=== PATIENT | female | born 1930 | race Caucasian/White ===

== ENCOUNTER 2019-07-14 13:00 | Emergency (ER) | payer MEDICARE, OTHER ==
[2019-07-14] MEDS ORDERED: Acetaminophen 500 MG TAB ONE (13:40)
--- NOTE | 2019-07-14 14:05 | CT ---
EXAM: Brain CT scan Without contrast: HISTORY: Injury from a fall from standing COMPARISON: None FINDINGS: Atrophy and chronic white matter ischemic change. No focal mass or midline shift. No intra or extra-axial hemorrhage. The visualized sinuses and mastoids are clear of acute process. IMPRESSION: No mass or bleed or other significant acute intracranial process.
--- NOTE | 2019-07-14 14:10 | CT ---
Exam: Thoracic spine CT without contrast HISTORY: Fall. Pain. Injury. Comparison: None FINDINGS: Limited evaluation of the mediastinum due to lack of IV contrast. No mediastinal mass, lymp hadenopathy or hematoma. Heart size is within normal limits. No significant pericardial fluid. Extensive coronary calcifications. Atherosclerosis of a nonaneurysmal aorta Visualized upper solid abdominal viscera is grossly unremarkable. Two incompletely evaluated cysts em anating from the left kidney No paraspinal mass, lymphadenopathy or hematoma. Throughout the thoracic spine, the central spinal canal appears patent. No significant stenosis. Neur al foramina are patent There appears be mild loss of vertebral body height at T3, T4, T7 which are likely due to chronic pro cess. No evidence of an acute fracture. No significant paraspinal changes at these levels. Nevertheless, if there is pain or point tenderness in this region, MRI can be performed to assess for possible edema which could be a secondary sign of fracture. There is no significant retropulsion. There is grade 1 anterolisthesis of T3 upon T4, likely on the basis of degenerative change. IMPRESSION: 1. Presumed remote mild compression deformities involving the thoracic spine as described above. If t here is pain or point tenderness, thoracic spine MRI can be performed. 2. Incompletely evaluated left renal cysts. Transcribed Date/Time: 07/14/2019 2:25 PM
--- NOTE | 2019-07-14 14:19 | CT ---
Exam: CT cervical spine without contrast HISTORY: Trauma. Pain. COMPARISON: None FINDINGS: No craniocervical dissociation. Appropriate alignment of the lateral masses of C1 and C2. Intact odon toid process Appropriate alignment of the facets. Straightening of normal cervical lordosis may be due to patient position, muscle spasm or cervical collar. Current study is not tailored to assess for ligamentous injury Spondylolisthesis: 1.9 mm of anterolisthesis of C3 upon C4, 1.9 mm anterolisthesis of C4 upon C5, 1.8 mm anterolisthesis of C7 upon T1. Soft tissue neck structures: No mass, lymphadenopathy or hematoma. No prevertebral soft tissue swelli ng. Mass effect upon the posterior aspect of the supraglottic larynx secondary to medial deviation of bilateral carotid arteries. Upper mediastinum and lung apices: Unremarkable Central spinal canal: Neural foramina and central spinal canal are patent. Evaluation is limited by t echnique Vertebral bodies: Cervical spine vertebral body height is maintained. No fracture. IMPRESSION: 1. No fracture 2. Mass effect upon the posterior supraglottic larynx due to medial deviation of bilateral carotid a rteries. 3. Spondylolisthesis as above. 4. Straightening of normal cervical lordosis. MRI if clinically.
--- NOTE | 2019-07-14 14:20 | CT ---
CT lumbar spine without contrast: HISTORY: Injury to back. Pain in middle of back. COMPARISON: No prior CT exams of the lumbar spine available FINDINGS: Dense vascular calcifications are seen in the abdominal aorta and involving the iliac arteries. There is colonic diverticulosis partially imaged. There is a larger incompletely imaged hypodense lesion involving the superior pole left kidney with a smaller 2.2 cm hypodense lesion also seen in left kidney. These lesions are likely related to cysts, but ultrasound examination is recommended on a nonemergent basis for further evaluation. Partial visualization of an approximately 3 mm nonobstructing calculus in the superior pole right kid ana. There is a burst fracture involving the L2 vertebral body with approximately 50% loss of height of th e anterior and midportion of the L2 vertebral body. There is slight retropulsion of fracture fragments involving the posterior superior endplate resulting in mild effacement of the ventral aspec t of the thecal sac. Exact age of this fracture is difficult to determine. No additional fracture is seen. There is trace retrolisthesis of L2 on L3 and L3 on L4. Multilevel degenerative changes are seen. L1-2: There are facet hypertrophic changes present as well as retropulsion of fracture fragments at t he posterior superior endplate as described above. These findings result in generalized mild narrowing of the central spinal canal greater on the left. Neural foramina are patent. L2-3: There is loss of intervertebral disc height with vacuum phenomenon seen in the intervertebral d isc. Facet hypertrophic changes are present. There is broad-based disc osteophyte complex with slight retrolisthesis of L2 on L3. This results in moderate narrowing of the central spinal canal. Th e right neural foramen is patent, but there is moderate left-sided neural foraminal narrowing. L3-4: There is loss of intervertebral disc height with vacuum phenomenon seen in the intervertebral d isc. There is retrolisthesis of L3 on L4. Disc osteophyte complex is present in addition to ligamentous thickening and facet hypertrophic changes. There is moderate to severe narrowing of the c entral spinal canal. There is a small gas density in the right neural foramen posterior to the vertebral body which may represent a small sequestered disc fragment. This does result in moderate to severe right-sided neural foraminal narrowing with [id number] left-sided neural foraminal narrowing. L4-5: There is a broad-based disc osteophyte complex with severe facet hypertrophic changes and ligam entous thickening. Resultant severe narrowing of the central spinal canal with narrowing of the lateral recesses at this level. [id number] bilateral neural foraminal narrowing is present. L5-S1: There is a mild broad-based disc bulge and prominent facet hypertrophic changes. There is mild effacement of the left anterolateral aspect of the thecal sac. Neural foramina are patent at this level. IMPRESSION: 1. Indeterminate age fracture L2 vertebral body with approximately 50% loss of height of the vertebra l body. No additional fracture is seen involving the lumbar spine. 2. Slight retrolisthesis of L2 on L3 and L3 on L4. 3. Multilevel degenerative changes in the lumbar spine. 4. Incompletely evaluated hypodense cystic lesions left kidney. Follow-up nonemergent renal ultrasoun d is recommended for further evaluation. 5. Nonobstructing right renal calculus.
[2019-07-14 15:10] LABS: Bilirubin Negative (Negative); Blood, Urine Negative (Negative); Clarity Clear (Clear); Glucose, Urine (Dipstick) Normal (Negative); Leukocyte 75 Leu/uL (Negative); Nitrite Negative (Negative); Protein, Urine (Dipstick) Negative (Neg-Trace); RBC/HPF 0-3 HPF (0-3); Urobilinogen Normal mg/dL (Less than 2)
[2019-07-14 15:25] LABS: Bacteria/HPF 1+ HPF (None Seen)
[2019-07-14] MEDS ORDERED: traMADol HCl 50 MG TAB ONE (15:33)
== END 2019-07-14 19:30 ==
LOC: ERS 13:00
DX: S32.029A Unspecified fracture of second lumbar vertebra, initial encounter for closed fracture (principal); E78.5 Hyperlipidemia, unspecified; I10 Essential (primary) hypertension; F32.9 Major depressive disorder, single episode, unspecified; Z86.73 Personal history of transient ischemic attack (TIA), and cerebral infarction without residual deficits; W19.XXXA Unspecified fall, initial encounter
CPT/HCPCS: 70450; 72125; 72128; 72131; 81003; 81015

== ENCOUNTER 2019-07-17 13:06 | Observation (INO) | payer MEDICARE, OTHER ==
[2019-07-17 13:52] LABS: #Lymphocytes 0.5 thou/uL (1.20-3.40); #Monocytes 0.9 thou/uL (0.11-0.59); %Basophils 0.1 % (0.0-1.0); %Eosinophils 0.2 % (0.0-10.0); %Lymphocytes 3.9 % (21.0-51.0); %Monocytes 7.1 % (0.0-10.0); %Neutrophils 88.7 % (42.0-75.0); Hemoglobin 14.4 g/dL (12.0-16.0); Mean Corpuscular HGB CONC 32.6 g/dL (32.0-36.0); Mean Corpuscular Hemoglobin 28.2 pg (27.0-31.0); Mean Corpuscular Volume 86.3 fL (78.0-98.0); Mean Platelet Volume 8.6 fL (7.4-10.4); Platelet Count 232 thou/uL (130-400); RBC Distribution Width 12.1 % (11.5-14.5); Red Blood Cell (RBC) Count 5.11 mill/uL (4.20-5.40); White Blood Cell (WBC) Count 12.4 thou/uL (4.8-10.8)
[2019-07-17] MEDS ORDERED: Acetaminophen 325 MG/10.15 ML UDCUP ONE (13:59)
[2019-07-17] MEDS ORDERED: Acetaminophen 325 MG TAB ONE (14:00)
--- NOTE | 2019-07-17 14:04 | CT ---
Exam: Brain CT without IV contrast: HISTORY: Altered mental status COMPARISON: 07/14/2019 FINDINGS: Atrophy and marked chronic white matter ischemic changes noted bilaterally. No focal mass or midline shift. No intra or extra-axial hemorrhage. Sinuses demonstrate some minimal right maxillary sinus mucosal disease. The mastoids appear clear. IMPRESSION: Atrophy and chronic white matter ischemic change. No mass or bleed or other acute process. Right maxi llary sinus mucosal disease. Stable from prior study.
--- NOTE | 2019-07-17 14:10 | RAD ---
RADIOGRAPH CHEST 1 VIEW: DATE: 07/17/2019 HISTORY: 88-year-old female with altered mental status. FINDINGS: The thoracic aorta is tortuous and ectatic. There is no evidence of airspace density, pulmonary edema , or cardiomegaly. The lateral costophrenic angles are not effaced. Supine positioning makes this insensitive for the detection of pneumothorax. Severe DJD of right glenohumeral joint. High riding le ft humeral head. Severe DJD of right AC joint. IMPRESSION: 1) No acute cardiopulmonary findings. 2) ectasia of thoracic aorta. 3) severe osteoarthrosis of the right shoulder, both glenohumeral joint and acromioclavicular joint. 4) evidence of chronic left rotator cuff tear.
[2019-07-17 14:13] LABS: ALT (SGPT) Less than 7 U/L (8-55); AST (SGOT) 10 U/L (5-34); Alkaline Phosphatase 81 U/L (40-150); Anion Gap 15 mmol/L (10-20); BUN (Urea Nitrogen) 16 mg/dL (9.8-20.1); Bilirubin, Total 1.2 mg/dL (0.2-1.2); Calc. Creatinine Clearance 0 mL/min (70-130); Calcium 9.5 mg/dL (7.8-10.44); Carbon Dioxide 25 mmol/L (23-31); Chloride 99 mmol/L (98-107); Estimated GFR-MDRD 47; Globulin 2.8 g/dL (2.4-3.5); Glucose 122 mg/dL (83-110); Lipase 16 U/L (8-78); Potassium 4.5 mmol/L (3.5-5.1); Protein, Total 6.8 g/dL (6.0-8.3); Sodium 134 mmol/L (136-145)
[2019-07-17 15:29] LABS: Bacteria/HPF None Seen HPF (None Seen); Bilirubin Negative (Negative); Blood, Urine Trace (Negative); Clarity Clear (Clear); Glucose, Urine (Dipstick) Normal (Negative); Leukocyte Negative Leu/uL (Negative); Nitrite Negative (Negative); Protein, Urine (Dipstick) 30 mg/dL (Neg-Trace); Squamous Epithelial 0-3 HPF (0-3); WBC/HPF 0-3 HPF (0-3)
--- NOTE | 2019-07-17 16:22 | CT ---
Exam: Lumbar spine CT scan without IV contrast: HISTORY: Pain COMPARISON: 07/14/2019 FINDINGS: On today's study the entire T12 vertebral body is included, it was not completely included on the 06/19 study. There is a mild compression fracture of the superior endplate of T12 without evidence for retropulsion. Bony demineralization. Stable vertical height loss of L2. 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 Stable nonobstructing right renal calculus. Stable multilevel lumbar spinal rafia l stenosis. Stable left renal cysts. IMPRESSION: Acute mild superior endplate compression fracture of T12 without retropulsion. Other stable findings as above. Findings discussed with Dr. Stout in the emergency room at 4:15 PM CODE CR
[2019-07-17] MEDS ORDERED: Piperacillin/Tazobactam 4.5 GM VIAL ONE (16:41)
[2019-07-17 16:55] LABS: Glucose 114 mg/dL (83-110)
[2019-07-17] MEDS ORDERED: Fentanyl 100 MCG/2 ML VIAL ONE (17:06)
[2019-07-17 18:59] VITALS: BMI 27.6
[2019-07-17] MEDS ORDERED: Ondansetron PF 4 MG/2 ML Vial IVP PRN (19:02)
[2019-07-17] MEDS ORDERED: Acetaminophen 325 MG TAB PO PRN (19:02)
[2019-07-17] MEDS ORDERED: Ondansetron ODT 4 MG TAB SL PRN (19:02)
[2019-07-17] MEDS: Sodium Chloride 0.45% 1,000 ML IV SCH (20:36)
[2019-07-17] MEDS: Atorvastatin Calcium 20 MG TAB PO SCH (20:51)
--- NOTE | 2019-07-18 00:06 | HP ---
PRIMARY CARE PHYSICIAN: Dr. Aniceto Trotter. CHIEF COMPLAINT: Fever, confusion. HISTORY OF PRESENT ILLNESS: This is an 88-year-old female, patient of Dr. Aniceto Trotter with a history of dementia, a remote history of alcohol abuse, history of past CVA, depression, hypothyroidism, hyperlipidemia, who presented to the emergency department from [facility] after being found confused, weak, with a fever and nausea and vomiting today. The patient was here in the emergency department 3 days ago after a fall and suffering a compression fracture. She has been at inpatient rehab unit for the past 2 days. She had been doing well until this morning when she was found by her niece to have a fever, increased confusion and shaking. They presented to the emergency department for evaluation and she did have a slightly elevated white blood cell count. Otherwise, normal evaluation. Her temperature was up to 102.7. She was started on IV fluids and IV antibiotics in the emergency department. The niece states that she is now closer to her baseline, but continues to have periods of confusion. Of note, she did have a history of TIA 4 to 5 years ago, where she had episode of confusion at that time as well. PAST MEDICAL HISTORY: CVA, hyperlipidemia, major depression, hypothyroidism, baseline depression and dementia. History of alcohol abuse, last used in 2018. PAST SURGICAL HISTORY: Right forearm surgical repair, appendectomy, and knee surgery. MEDICATIONS: Include; 1. Plavix 75 mg daily. 2. Famotidine 20 mg daily. 3. Folic acid 1 mg daily. 4. Levothyroxine 88 mcg daily. 5. Simvastatin 40 mg daily. 6. Calcium and D3 daily. 7. Lexapro 10 mg daily. SOCIAL HISTORY: [facility]. Rare alcohol at this point, but history of alcohol abuse up until 2018. She has been at the inpatient rehab for the past 2 days. No smoking. FAMILY HISTORY: Unobtainable from the patient as she is confused. PHYSICAL EXAMINATION: VITAL SIGNS: Temperature 97.7, pulse is 70, respirations 20, blood pressure 135/60, and pulse ox is 98% on room air. GENERAL: She is awake and alert. Very hard of hearing, but no acute distress. Mucosa is moist. NECK: Supple. No bruits. HEART: Regular rate and rhythm with 2/6 systolic ejection murmur latest at right sternal border. LUNGS: Clear. ABDOMEN: With positive bowel sounds. Soft. Diffuse tenderness. No rebound. No guarding. No hepatosplenomegaly. EXTREMITIES: No clubbing, cyanosis, or edema. 2+ peripheral pulses bilaterally. SKIN: With no rashes. No signs of infection. No open wounds. NEUROLOGIC: She moves all extremities. She does have limited range of motion due to her lumbar compression fractures. LABORATORY DATA: White blood cell count 12,400, hemoglobin and hematocrit 14.4 and 44.1 with normal indices, platelets of 232. Sodium 134, potassium 4.5, chloride 99, CO2 of 25. BUN and creatinine are 16 and 1.09 with a GFR of 47. Serum glucose was 122, calcium was 9.5. AST and ALT are normal. Troponin was negative. Urinalysis positive for protein, positive ketones, positive red blood cells. Lactic acid normal at 1.9. TSH was normal. Lipase is normal. Chest x-ray, brain CT showed no active disease. Brain CT with atrophy and chronic white matter changes. Chest x-ray showed severe arthrosis of the right shoulder. Chronic left rotator cuff tear. Lumbar CT was done as followup from her recent compression fractures revealed an endplate compression fracture of T12. ASSESSMENT AND PLAN: This is an 88-year-old female patient with remote history of alcohol abuse, who has been a recent patient at [facility], now with acute febrile illness with associated confusion. 1. Fever, rule out urinary tract infection. She is being treated empirically with antibiotics started in the emergency department. Await urine and blood cultures to rule out sepsis. Other possibilities include viral syndrome, cold pneumonia, endocarditis and other. 2. Mild dehydration. We will continue gentle rehydration with IV fluids. 3. Poor p.o. intake. We will monitor her diet closely and give diet supplements. 4. Major depression. We will continue her oral medications. 5. History of cerebrovascular accident. We will continue Plavix and statin at this time. 6. Hypothyroidism. Her thyroid levels are stable. We will continue her replacement. 7. Code status discussed with family and she does have a living will with DNR in place and we will continue that. Job ID: [id number]
[2019-07-18] MEDS: Levothyroxine Sodium 88 MCG TAB PO SCH (05:29)
[2019-07-18 06:20] LABS: #Eosinphils 0.2 thou/uL (0.0-0.7); #Lymphocytes 0.7 thou/uL (1.20-3.40); #Monocytes 0.9 thou/uL (0.11-0.59); #Neutrophils 6.4 thou/uL (1.40-6.50); %Basophils 0.2 % (0.0-1.0); %Lymphocytes 8.8 % (21.0-51.0); %Monocytes 10.9 % (0.0-10.0); %Neutrophils 78.2 % (42.0-75.0); Hemoglobin 12.9 g/dL (12.0-16.0); Mean Corpuscular HGB CONC 32.4 g/dL (32.0-36.0); Mean Corpuscular Hemoglobin 28.8 pg (27.0-31.0); Mean Corpuscular Volume 88.9 fL (78.0-98.0); Mean Platelet Volume 8.6 fL (7.4-10.4); Platelet Count 209 thou/uL (130-400); RBC Distribution Width 12.1 % (11.5-14.5); Red Blood Cell (RBC) Count 4.49 mill/uL (4.20-5.40); White Blood Cell (WBC) Count 8.1 thou/uL (4.8-10.8)
[2019-07-18 06:27] LABS: ALT (SGPT) 8 U/L (8-55); AST (SGOT) 13 U/L (5-34); Albumin 3.3 g/dL (3.4-4.8); Alkaline Phosphatase 73 U/L (40-150); Anion Gap 10 mmol/L (10-20); BUN (Urea Nitrogen) 14 mg/dL (9.8-20.1); Bilirubin, Total 0.9 mg/dL (0.2-1.2); Calc. Creatinine Clearance 41 mL/min (70-130); Calcium 8.9 mg/dL (7.8-10.44); Carbon Dioxide 27 mmol/L (23-31); Chloride 103 mmol/L (98-107); Estimated GFR-MDRD 52; Globulin 2.4 g/dL (2.4-3.5); Glucose 99 mg/dL (83-110); Potassium 4.3 mmol/L (3.5-5.1); Protein, Total 5.7 g/dL (6.0-8.3); Sodium 136 mmol/L (136-145)
[2019-07-18] MEDS: Famotidine 20 MG TAB PO SCH (08:36)
[2019-07-18] MEDS: Folic Acid 1 MG TAB PO SCH (08:36)
[2019-07-18] MEDS: Escitalopram Oxalate 10 mg Tablet PO SCH (08:36)
[2019-07-18] MEDS: Clopidogrel Bisulfate 75 MG TAB PO SCH (08:36)
[2019-07-18] MEDS ORDERED: Acetaminophen 325 MG TAB PO PRN (10:50)
[2019-07-18] MEDS ORDERED: Magnesium Citrate 300 ML BOT PO PRN (10:56)
--- NOTE | 2019-07-18 11:19 | PRG ---
DATE OF SERVICE: 07/18/2019 PRIMARY CARE PHYSICIAN: Aniceto Trotter MD SUBJECTIVE: The patient continues to have back pain. She states she is feeling some better. Denies nausea or vomiting. Denies abdominal pain. Continues to feel weak, but no further fevers or chills. OBJECTIVE: VITAL SIGNS: Temperature 98.0 which is her T-max, pulse is 71, respirations 18, blood pressure 117/61, and pulse ox 91% to 95% on room air. GENERAL: She is awake and alert, in no acute distress. Speech is clear. She is very hard of hearing. HEENT: Mucosa is moist. NECK: Supple. HEART: Regular rate and rhythm. LUNGS: Clear. ABDOMEN: Scattered bowel sounds, diffuse tenderness, but no rebound, no guarding. EXTREMITIES: No clubbing, cyanosis, or edema. LABORATORY DATA: White blood cell count is down to 8100, hemoglobin and hematocrit 12.9 and 39.9, and platelets of 209. Sodium 136, potassium 4.3, chloride 103, CO2 of 27, BUN and creatinine 14 and 1.0 with a GFR of 52. Accu-Cheks of 99, 114, 122. Albumin of 3.3. TSH is normal at 1.16. ASSESSMENT AND PLAN: This is an 88-year-old female patient, resident at [facility], status post fall with resultant T12 compression fracture. 1. Febrile illness with associated confusion, rule out urinary tract infection. We will continue broad-spectrum antibiotics until urine and blood culture results. Await echocardiogram. 2. Mild dehydration, improving. We will continue gentle rehydration as she has a poor p.o. intake. 3. History of cerebrovascular accident. Continue Plavix and statins. Job ID: [id number]
[2019-07-18] MEDS: Sodium Chloride 0.45% 1,000 ML IV SCH ×2 (15:26→16:58)
[2019-07-18] MEDS ORDERED: Ondansetron ODT 4 MG TAB PO PRN (17:13)
[2019-07-18] MEDS: cefTRIAXone\\ROCEPHIN 500 MG in Sodium Chloride 0.9% 100 ML IVPB SCH (17:59)
[2019-07-18] MEDS ORDERED: cefTRIAXone\\ROCEPHIN 500 MG in Sodium Chloride 0.9% 0 ML IVPB SCH (18:00)
[2019-07-18] MEDS: Docusate 100 MG CAP PO SCH (20:13)
[2019-07-18] MEDS: Atorvastatin Calcium 20 MG TAB PO SCH (20:13)
[2019-07-18] MEDS: Acetaminophen/Codeine 30-300mg Tablet PO PRN (20:13)
[2019-07-19] MEDS: cefTRIAXone\\ROCEPHIN 500 MG in Sodium Chloride 0.9% 100 ML IVPB SCH (05:22)
[2019-07-19] MEDS: Levothyroxine Sodium 88 MCG TAB PO SCH (05:24)
[2019-07-19 05:31] LABS: #Basophils 0.1 thou/uL (0.0-0.2); #Eosinphils 0.3 thou/uL (0.0-0.7); #Lymphocytes 1.5 thou/uL (1.20-3.40); #Monocytes 1.2 thou/uL (0.11-0.59); #Neutrophils 5.4 thou/uL (1.40-6.50); %Basophils 0.7 % (0.0-1.0); %Eosinophils 3.3 % (0.0-10.0); %Lymphocytes 17.4 % (21.0-51.0); %Monocytes 14.1 % (0.0-10.0); %Neutrophils 64.5 % (42.0-75.0); Hemoglobin 12.2 g/dL (12.0-16.0); Mean Corpuscular HGB CONC 32.2 g/dL (32.0-36.0); Mean Corpuscular Hemoglobin 28.2 pg (27.0-31.0); Mean Corpuscular Volume 87.7 fL (78.0-98.0); Mean Platelet Volume 8.8 fL (7.4-10.4); Platelet Count 225 thou/uL (130-400); Red Blood Cell (RBC) Count 4.32 mill/uL (4.20-5.40); White Blood Cell (WBC) Count 8.4 thou/uL (4.8-10.8)
[2019-07-19] MEDS: Folic Acid 1 MG TAB PO SCH (08:38)
[2019-07-19] MEDS: Famotidine 20 MG TAB PO SCH (08:38)
[2019-07-19] MEDS: Clopidogrel Bisulfate 75 MG TAB PO SCH (08:39)
[2019-07-19] MEDS: Docusate 100 MG CAP PO SCH ×2 (08:39→19:45)
[2019-07-19] MEDS: Escitalopram Oxalate 10 mg Tablet PO SCH (08:39)
[2019-07-19] MEDS: Sodium Chloride 0.45% 1,000 ML IV SCH (10:46)
[2019-07-19] MEDS: Acetaminophen/Codeine 30-300mg Tablet PO PRN ×2 (11:16→19:44)
--- NOTE | 2019-07-19 12:02 | PRG ---
DATE OF SERVICE: 07/19/2019 PRIMARY CARE PHYSICIAN: Dr. Aniceto Trotter. SUBJECTIVE: The patient is feeling much better today. Continues to have back pain that seems to be controlled with pain medicine. No nausea or vomiting. Appetite is improved. No abdominal pain. Physical Therapy to continue work with her today. No fevers or chills. OBJECTIVE: VITAL SIGNS: Temperature 97.9, pulse 67, respirations 18, blood pressure 134/73, and pulse ox is 96% on room air. GENERAL: She is awake and alert, in no acute distress. She appears more comfortable, smiling, in bed. HEENT: Mucosa is moist. NECK: Supple. HEART: Regular rate and rhythm. LUNGS: Clear. ABDOMEN: Diffusely tender, but no rebound or guarding. Positive bowel sounds. BACK: Painful range of motion of her low back. EXTREMITIES: No clubbing, cyanosis, or edema. She moves all extremities. LABORATORY DATA: White blood cell count down to 8400, hemoglobin and hematocrit 12.2 and 37.9, and platelets of 225, normal differential. Urine cultures are now negative for 24 hours. Blood cultures are negative. ASSESSMENT AND PLAN: This is an 88-year-old female patient, admitted for fever and leukocytosis. She was ruled out for sepsis, ruled out for urinary tract infection. Dehydration is resolved. 1. Febrile illness with associated confusion, has resolved. We will stop antibiotics. No need further treatment like the transient febrile illness including upper respiratory infection. 2. Dehydration is resolved. We will stop IV fluids. 3. History of cerebrovascular accident. No signs of residual effects at this point. 4. Compression fracture from recent fall. Continue pain management. Continue brace whenever she is out of bed. We will attempt for placement to inpatient rehab. The patient's family do not want to go back to [facility] at this point. 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 5. Disposition. Awaiting Case Management evaluation if clinically stable for discharge. Job ID: [id number]
[2019-07-19] MEDS: Atorvastatin Calcium 20 MG TAB PO SCH (19:44)
[2019-07-20] MEDS: Levothyroxine Sodium 88 MCG TAB PO SCH (05:09)
[2019-07-20 07:45] VITALS: TEMP 98.8
[2019-07-20] MEDS: Folic Acid 1 MG TAB PO SCH (08:19)
[2019-07-20] MEDS: Clopidogrel Bisulfate 75 MG TAB PO SCH (08:19)
[2019-07-20] MEDS: Famotidine 20 MG TAB PO SCH (08:20)
[2019-07-20] MEDS: Docusate 100 MG CAP PO SCH (08:20)
[2019-07-20 08:24] VITALS: BP 151/79
[2019-07-20] MEDS: Acetaminophen/Codeine 30-300mg Tablet PO PRN (09:05)
[2019-07-20] MEDS: Escitalopram Oxalate 10 mg Tablet PO SCH (10:47)
--- NOTE | 2019-07-20 12:14 | PRG ---
DATE OF SERVICE: 07/20/2019 SUBJECTIVE: Ms. Benites is doing well. She has had no further fever. OBJECTIVE: VITAL SIGNS: Her blood pressure is 151/79, temperature 98.8. LUNGS: Reveal bilateral breath sounds. HEART: Reveals a regular rate and rhythm. No murmurs, gallops, or rubs. LABORATORY DATA: All blood cultures are negative x3 days. IMPRESSION: 1. Fever of unknown etiology. 2. Recent history of fracture of T12. PLAN: The patient probably safely can be discharged [facility] the [facility] facility with back brace support and continue her current medications. Job ID: [id number]
== END 2019-07-20 12:38 ==
LOC: ERS 13:06 → 2NO 16:42 → ERS 18:30 → T4-A 18:30
PROVIDERS: ADMIT Family Medicine; ATTEND Family Medicine
DX: R50.9 Fever, unspecified (principal); E86.0 Dehydration; F03.90 Unspecified dementia, unspecified severity, without behavioral disturbance, psychotic disturbance, mood disturbance, and anxiety; F32.9 Major depressive disorder, single episode, unspecified; E78.5 Hyperlipidemia, unspecified; E03.9 Hypothyroidism, unspecified; S22.089A Unspecified fracture of T11-T12 vertebra, initial encounter for closed fracture; Z79.899 Other long term (current) drug therapy; Z86.73 Personal history of transient ischemic attack (TIA), and cerebral infarction without residual deficits; Z66 Do not resuscitate
CPT/HCPCS: 51701; 70450; 71045; 72131; 80053; 82947; 82962; 83605; 83690; 84484; 85025 ×2; 87040; 87086; 87804 ×2; 93005; 96361 ×4; 96365; 96367 ×2; 96375; 97110; 97116 ×2; 97139 ×2; 97530; 99285; G0378 ×4; 36415; 36416; 81015; 84443; A4353; J0696; J2543; J3010; J3370; Q0162

== ENCOUNTER 2020-08-29 19:28 | Emergency (ER) | payer MEDICARE ==
[2020-08-29] MEDS ORDERED: Ondansetron PF 4 MG/2 ML Vial ONE (20:15)
[2020-08-29] MEDS ORDERED: Morphine 4 MG/ML VIAL ONE (20:15)
--- NOTE | 2020-08-29 20:31 | RAD ---
LEFT HIP TWO VIEWS: History: Hip pain status post fall. FINDINGS: There are arthritic changes of the hip. There are no signs of fracture or dislocation. IMPRESSION: No acute injury. POS: OFF
--- NOTE | 2020-08-29 20:37 | RAD ---
AP PELVIS; History: Fall with pelvic and hip pain. FINDINGS: Bones appear demineralized. Pelvic ring is intact without evidence of fracture. SI joints are symmetr ic. No diastasis of the symphysis. Arthritic changes of both hips. IMPRESSION: No acute injury. POS: OFF
[2020-08-29 20:50] LABS: #Eosinphils 0.1 thou/uL (0.0-0.7); #Lymphocytes 2.5 thou/uL (1.20-3.40); #Neutrophils 13.1 thou/uL (1.40-6.50); %Eosinophils 0.7 % (0.0-10.0); %Lymphocytes 14.9 % (21.0-51.0); %Neutrophils 78.3 % (42.0-75.0); Hemoglobin 14.1 g/dL (12.0-16.0); Mean Corpuscular HGB CONC 32.7 g/dL (32.0-36.0); Mean Corpuscular Hemoglobin 29.5 pg (27.0-31.0); Mean Corpuscular Volume 90.4 fL (78.0-98.0); Mean Platelet Volume 8.5 fL (7.4-10.4); Platelet Count 245 thou/uL (130-400); Red Blood Cell (RBC) Count 4.76 mill/uL (4.20-5.40); White Blood Cell (WBC) Count 16.7 thou/uL (4.8-10.8)
[2020-08-29 21:10] LABS: ALT (SGPT) 8 U/L (8-55); AST (SGOT) 14 U/L (5-34); Albumin 4.1 g/dL (3.4-4.8); Alkaline Phosphatase 82 U/L (40-110); Anion Gap 18 mmol/L (10-20); BUN (Urea Nitrogen) 11 mg/dL (9.8-20.1); Bilirubin, Total 0.6 mg/dL (0.2-1.2); Calc. Creatinine Clearance 0 mL/min (70-130); Calcium 9.3 mg/dL (7.8-10.44); Carbon Dioxide 21 mmol/L (23-31); Chloride 105 mmol/L (98-107); Estimated GFR-MDRD 35; Globulin 2.6 g/dL (2.4-3.5); Glucose 135 mg/dL (83-110); Potassium 3.8 mmol/L (3.5-5.1); Protein, Total 6.7 g/dL (6.0-8.3); Sodium 140 mmol/L (136-145)
--- NOTE | 2020-08-29 21:21 | RAD ---
LEFT SHOULDER ONE VIEW: History: Fall at home. FINDINGS: The bones are demineralized. There is a shoulder dislocation which appears to represent an anterior d islocation on this single view. There are arthritic changes also seen. IMPRESSION: Anterior shoulder dislocation. POS: OFF
--- NOTE | 2020-08-29 21:28 | RAD ---
PORTABLE CHEST: History: Status post fall. Comparison: 07-17-19 FINDINGS: Heart size is within normal limits. There are atherosclerotic changes of the aorta. A left shoulder d islocation is present. The right shoulder shows marked arthritic change. IMPRESSION: No active intrathoracic disease. Left anterior shoulder dislocation. POS: OFF
[2020-08-29] MEDS ORDERED: Ketamine 50 MG/ML (10ML VIAL) ONE (21:54)
--- NOTE | 2020-08-29 22:22 | CT ---
CT CERVICAL SPINE PERFORMED WITHOUT CONTRAST ENHANCEMENT: Date: 08/29/2020 HISTORY: Neck pain status post fall. FINDINGS: The vertebral bodies maintain normal height. There is anterolisthesis of 3-4 mm of C4 on C5. There is marked disc narrowing at the C5-6 and C6-7 levels. Facets show degenerative change, but are in stacie l alignment. Mild right-sided foraminal stenosis at C2-3. Mild bilateral foraminal narrowing at C3-4. Left-sided foraminal narrowing at C4-5. Moderate right-sided foraminal narrowing at C6-7. There is n o CT evidence of fracture. Lung apices are clear. IMPRESSION: No CT evidence of fracture of the cervical spine. POS: OFF
--- NOTE | 2020-08-29 22:23 | CT ---
CT BRAIN PERFORMED WITHOUT CONTRAST ENHANCEMENT: Date: 08/29/2020 HISTORY: Head injury status post fall. FINDINGS: There is marked generalized ventricular and sulcal prominence. There is chronic white matter change. There are no signs of intracerebral hemorrhage or extra-axial fluid collections. The mastoid air cell s and visualized sinuses are clear. IMPRESSION: No acute intracranial abnormalities. POS: OFF
[2020-08-29] MEDS ORDERED: Boostrix 0.5 ML VIAL ONE ×2 (23:25→23:46)
--- NOTE | 2020-08-30 07:20 | RAD ---
LEFT SHOULDER 3 VIEWS: Date: 08/29/2020 HISTORY: Post reduction. FINDINGS: Anterior shoulder dislocation has been reduced. The humeral head is high-riding, compatible with a ch ronic underlying rotator cuff tear, but the dislocation does appear to have been reduced. IMPRESSION: Reduction of dislocation. POS: OFF
== END 2020-08-30 00:59 ==
LOC: ERS 19:28
DX: S06.0X9A Concussion with loss of consciousness of unspecified duration, initial encounter (principal); S43.005A Unspecified dislocation of left shoulder joint, initial encounter; S01.81XA Laceration without foreign body of other part of head, initial encounter; E78.5 Hyperlipidemia, unspecified; I10 Essential (primary) hypertension; F32.9 Major depressive disorder, single episode, unspecified; Z79.899 Other long term (current) drug therapy; W18.30XA Fall on same level, unspecified, initial encounter
CPT/HCPCS: 12011; 23650; 36415; 70450; 71045; 72125; 72170; 80053; 84484; 85025; 90471; 90715; 93005; 96374; 96375; 99156; J2270; J2405